=== PATIENT | male | born 1985 | race Caucasian/White ===

== ENCOUNTER 2019-02-19 09:39 | Emergency (ER) | payer BC ==
[~2019-02-19] VITALS: Ht 170.2 cm; Wt 86.2 kg
[2019-02-19 10:26] LABS: Basophils # (auto) 0 uL; Basophils % (auto) 0.9 % (0.0-2.0); Eosinophils # (auto) 0.1 uL; Hematocrit 44.7 % (41.0-53.0); Lymphocytes % (auto) 20.3 % (10.0-50.0); Mean Corpuscular Hemoglobin 28.6 pg (28.0-32.0); Mean Corpuscular Hgb Conc. 33.6 g/dL (32.0-36.0); Mean Corpuscular Volume 84.9 fL (80.0-100.0); Monocytes # (auto) 0.6 uL; Monocytes % (auto) 12.7 % (0.0-12.0); Neutrophils % (auto) 63.1 % (37.0-80.0); Nucleated Red Blood Cells % 0.1 %; Platelet Count (auto) 193 10^3/uL (140-450); Red Blood Cells 5.26 10^6/uL (4.5-5.90); Red Cell Distribution Width 13.2 % (11.8-14.3); White Blood Cell 4.8 10^3/uL (4.4-10.8)
[2019-02-19 10:48] LABS: Alanine Aminotransferase 22 U/L (16-61); Albumin 4.2 g/dL (3.4-5.0); Anion Gap 6 (5-15); Aspartate Aminotransferase 14 U/L (15-37); BUN/Creatinine Ratio 11.8; Blood Urea Nitrogen 17 mg/dL (7-18); Calcium 8.6 mg/dL (8.5-10.1); Carbon Dioxide 30 mmol/L (21-32); Chloride 102 mmol/L (98-107); GFR African American 74 mL/min; GFR Non-African American 61 mL/min; Glucose 84 mg/dL (74-106); Potassium 4.6 mmol/L (3.5-5.1); Sodium 138 mmol/L (136-145)
[2019-02-19 10:53] LABS: Alkaline Phosphatase 60 U/L (45-117); Bilirubin, Total 0.6 mg/dL (0.2-1.0); Total Protein 7.5 g/dL (6.4-8.2)
[2019-02-19 11:23] VITALS: BP 113/58
== END 2019-02-19 13:33 | disposition home or self-care (01) ==
LOC: ER 09:39
DX: R06.02 Shortness of breath (principal); R00.1 Bradycardia, unspecified
CPT/HCPCS: 36415; 71046; 80053; 84484; 85025; 93005; 94761